=== PATIENT | male | born 1960 | race Caucasian/White ===

== ENCOUNTER 2020-08-25 15:37 | Outpatient (CLI) | payer MEDICARE, SELFPAY ==
--- NOTE | 2020-08-25 15:44 | MR_ITS ---
WS: [id number] MRI CERVICAL SPINE NONCONTRAST TECHNIQUE: Sagittal T1, T2 and STIR imaging. Axial T2, gradient, and fiesta imaging. CLINICAL INFORMATION: CERVICALGIA COMPARISON: None. FINDINGS: Slight exaggeration of the normal cervical lordosis. Normal C1-C2 articulation. Postoperative changes ACDF C5-C6 and C6-C7. C2-C3: Normal. C3-C4: Mild annular bulging. Mild facet arthropathy. Mild right bony foraminal narrowing. Mild facet arthropathy. C4-C5: Mild annular bulging with osteophytic ridging. Moderate left and mild right bony foraminal emi rowing. Mild facet arthropathy. Spinal canal is patent. C5-C6: Postoperative changes ACDF. Spinal canal and foramen are patent. Mild facet arthropathy. C6-C7: Postoperative changes ACDF. Mild left bony foraminal narrowing. Spinal canal and right foramen are patent. Mild facet arthropathy. C7-T1: Mild disc bulging eccentric to the right. Small right proximal foraminal protrusion. Moderate right and no significant left foraminal narrowing. Spinal canal is patent. Visualized upper thoracic cord is normal. MR/MR cervical spin wo con* [id number] IMPRESSION: 1. Mild cervical curve. Postoperative changes ACDF C5-C7. 2. Small right proximal foraminal protrusion C7-T1 with moderate right foramin al narrowing. Encroachment on the exiting right C8 nerve root. 3. No significant central canal stenosis. 4. Otherwise moderate bony foraminal narrowing more prominent at right C3-C4, left C4-C5, and left C6-C7.
--- NOTE | 2020-08-25 15:45 | XR_ITS ---
WS: [id number] CERVICAL SPINE FLEXION EXTENSION TECHNIQUE: 3 views of the cervical spine: lateral neutral, flexion and extension views. CLINICAL INFORMATION: CERVICALGIA COMPARISON: None. FINDINGS: Slight exaggeration the normal cervical lordosis. Slight retrolisthesis C4 on C5 in the neutral view measuring 2.1 mm. Prior postoperative changes ACDF C5-C7 appears solid. Normal C1-2 articulation. No instability on flexion-extension. Normal prevertebral soft tissues. Posterior elements are normal. No other significant findings. XR/XR cervical spine fl/ex [id number] IMPRESSION: 1. Prior postoperative changes ACDF C5-C7 appears solid. 2. No instability on flexion-extension
== END 2020-08-25 15:38 | disposition home or self-care (01) ==
LOC: RADWPI 15:41
PROVIDERS: PCP Family Medicine; Visit Provider Nurse Practitioner
DX: M50.23 Other cervical disc displacement, cervicothoracic region (principal); Z98.1 Arthrodesis status
CPT/HCPCS: 72040; 72141

== ENCOUNTER 2020-09-27 08:36 | Outpatient (CLI) | payer MEDICARE, SELFPAY ==
--- NOTE | 2020-09-27 09:00 | CT_ITS ---
WS: [id number] Exam: CT angio chest abdomen Date/Time of Exam: 09/27/2020 9:01 AM Reason For Exam: I71.2 - Thoracic aortic aneurysm, without rupture DLP: 1785.[address] scans at [facility] use at least one of these dose optimization techniques: automat ed exposure control; mA and/or kV adjustment per patient size (includes targeted exams where dose is matched to clinical indication); or iterative reconstruction. CT angiography of the chest and abdomen is performed in the axial plane with sagittal and coronal ref ormatted images. CTA of the chest. No previous studies. There was no sign of acute PE. The thoracic aorta is normal in caliber. No sign of aortic dissection or aneurysm. The central pulmonary arteries are clear. The airway is patent. Subcentimeter mediastina l lymph nodes are noted. The largest node is in the AP window and measures slightly over 9 mm at grea test short axis dimension. Triple vessel coronary artery calcifications are seen. No pleural or peric ardial effusion. Pleural thickening and calcification noted in the pleural apices. Normal thyroid tis dhruv. The lungs are clear and fully inflated. No destructive bone lesions are chest wall defects. CT/CT angio chest abdomen IMPRESSION: 1. No sign of acute PE. No thoracic aortic aneurysm or dissection seen. 2. Mild mediastinal lymphadenopathy. All nodes are less than 1 cm in greatest s hort axis dimension. CTA of the abdomen. The abdominal aorta shows no evidence of aneurysmal dilatation or dissection. T he SMA, celiac, and SARAH are all patent. The bilateral renal arteries are patent . The visualized common iliac, internal and external iliac arteries are also pa tent. Fatty liver is noted. The gallbladder, spleen and pancreas appear normal. The k idneys are unremarkable. The portal vein and IVC are patent. Unremarkable adren al glands. The stomach appears normal. Small bowel loops are normal in caliber. The large bowel is unremarkable as visualized. Normal appendix is noted. No ly mphadenopathy seen. No free fluid. No destructive bone lesions. Tiny fat filled periumbilical hernia. IMPRESSION: 1. The abdominal aorta is normal in caliber without evidence of aneurysm or dis section. The major branches abdominal aorta are widely patent. 2. No mass, lymphadenopathy or acute finding in the abdomen.
[2020-09-27 09:34] LABS: Blood Urea Nitrogen 10 mg/dL (8-23)
[2020-09-27] MEDS: iohexol 350 mg/mL 100 mL Btl IV (09:59)
== END 2020-09-27 08:37 | disposition home or self-care (01) ==
PROVIDERS: PCP Family Medicine; Visit Provider Internal Medicine
DX: I71.2 Thoracic aortic aneurysm, without rupture (principal); Z01.818 Encounter for other preprocedural examination
CPT/HCPCS: 71275; 74175; 82565; 84520; Q9967

== ENCOUNTER → 2021-04-11 11:53 | Outpatient (BNVA) | payer MEDICARE, SELFPAY | PROVIDERS: PCP Family Medicine; Visit Provider Family Medicine | DX: E03.9 Hypothyroidism, unspecified (principal) | CPT/HCPCS: 84443 ==

== ENCOUNTER → 2021-04-13 09:33 | Outpatient (BNVA) | payer MEDICARE, SELFPAY | PROVIDERS: PCP Family Medicine; Visit Provider Family Medicine | DX: M19.011 Primary osteoarthritis, right shoulder (principal) | CPT/HCPCS: 73030 ==

== ENCOUNTER → 2021-05-10 11:47 | Outpatient (BNVA) | payer MEDICARE, SELFPAY | PROVIDERS: PCP Family Medicine; Visit Provider Family Medicine | DX: Z00.00 Encounter for general adult medical examination without abnormal findings (principal); E16.2 Hypoglycemia, unspecified; E03.9 Hypothyroidism, unspecified; Z12.5 Encounter for screening for malignant neoplasm of prostate; I71.2 Thoracic aortic aneurysm, without rupture; M75.51 Bursitis of right shoulder; F17.211 Nicotine dependence, cigarettes, in remission | CPT/HCPCS: 80053; 80061; 84443; 85025; G0103 ==

== ENCOUNTER 2021-05-26 06:00 | Outpatient (RCR) | payer MEDICARE, SELFPAY | END 2021-06-02 23:59 | disposition home or self-care (01) | LOC: TPT 06:00 | PROVIDERS: PCP Family Medicine; Referring Provider Family Medicine; Visit Provider Family Medicine | DX: M75.51 Bursitis of right shoulder (principal) | CPT/HCPCS: 97110; 97162 ==

== ENCOUNTER 2021-06-03 06:00 | Outpatient (RCR) | payer MEDICARE, SELFPAY | END 2021-06-22 23:59 | disposition home or self-care (01) | LOC: TPT 06:00 | PROVIDERS: PCP Family Medicine; Referring Provider Family Medicine; Visit Provider Family Medicine | DX: M75.51 Bursitis of right shoulder (principal) | CPT/HCPCS: 97110; 97140 ==

== ENCOUNTER → 2021-06-22 09:10 | Outpatient (BNVA) | payer MEDICARE, SELFPAY | PROVIDERS: PCP Family Medicine; Visit Provider Family Medicine | DX: E03.9 Hypothyroidism, unspecified (principal) | CPT/HCPCS: 84439; 84443 ==

== ENCOUNTER → 2021-09-29 15:31 | Outpatient (BNVA) | payer MEDICARE, SELFPAY | PROVIDERS: PCP Family Medicine; Visit Provider Family Medicine | DX: E03.9 Hypothyroidism, unspecified (principal) | CPT/HCPCS: 84443 ==

== ENCOUNTER → 2022-04-14 16:50 | Outpatient (BNVA) | payer MEDICARE, SELFPAY | PROVIDERS: PCP Family Medicine; Visit Provider Nurse Practitioner Family | DX: R05.9 Cough, unspecified (principal); Z20.822 Contact with and (suspected) exposure to COVID-19 | CPT/HCPCS: 87426 ==

== ENCOUNTER → 2022-04-21 10:08 | Outpatient (BNVA) | payer MEDICARE, SELFPAY | PROVIDERS: PCP Family Medicine; Visit Provider Registered Nurse Neonatal Intensive Care | DX: R05.9 Cough, unspecified (principal); Z20.822 Contact with and (suspected) exposure to COVID-19 | CPT/HCPCS: 87426 ==

== ENCOUNTER → 2022-05-02 08:18 | Outpatient (BNVA) | payer MEDICARE, SELFPAY | PROVIDERS: PCP Family Medicine; Visit Provider Family Medicine | DX: E03.9 Hypothyroidism, unspecified (principal); Z12.5 Encounter for screening for malignant neoplasm of prostate; Z13.6 Encounter for screening for cardiovascular disorders | CPT/HCPCS: 80053; 80061; 84439; 84443; 84481; G0103 ==

== ENCOUNTER → 2022-09-18 12:20 | Outpatient (BNVA) | payer MEDICARE, SELFPAY | PROVIDERS: PCP Family Medicine; Visit Provider Specialist | DX: R00.1 Bradycardia, unspecified (principal) | CPT/HCPCS: 84439 ==

== ENCOUNTER → 2022-10-04 10:14 | Outpatient (BNVA) | payer MEDICARE, SELFPAY | PROVIDERS: PCP Family Medicine; Visit Provider Specialist | DX: E03.9 Hypothyroidism, unspecified (principal); R00.1 Bradycardia, unspecified | CPT/HCPCS: 80048; 84443 ==

== ENCOUNTER → 2023-03-21 15:53 | Outpatient (BNVA) | payer MEDICARE, SELFPAY | PROVIDERS: PCP Family Medicine; Visit Provider Family Medicine | DX: R50.9 Fever, unspecified (principal); R05.9 Cough, unspecified; R09.89 Other specified symptoms and signs involving the circulatory and respiratory systems; U07.1 COVID-19 | CPT/HCPCS: 87400; 87426 ==

== ENCOUNTER → 2023-06-28 09:12 | Outpatient (BNVA) | payer MEDICARE, SELFPAY | PROVIDERS: PCP Family Medicine; Visit Provider Family Medicine | DX: U07.1 COVID-19 (principal); E03.9 Hypothyroidism, unspecified | CPT/HCPCS: 80053; 80061; 84443; 85025 ==

== ENCOUNTER → 2023-10-29 08:56 | Outpatient (BNVA) | payer MEDICARE, SELFPAY | PROVIDERS: PCP Family Medicine; Visit Provider Nurse Practitioner Family | DX: E03.9 Hypothyroidism, unspecified (principal); Z12.5 Encounter for screening for malignant neoplasm of prostate; Z79.899 Other long term (current) drug therapy | CPT/HCPCS: 80053; 80061; 83036; 84443; 85025; G0103 ==